=== PATIENT | female | born 1965 | race African-American/Black ===

== ENCOUNTER 2018-01-31 10:55 | Emergency (ER) | payer BC ==
[~2018-01-31] VITALS: Ht 157.5 cm; Wt 63.5 kg
--- NOTE | 2018-01-31 11:04 | NUR ---
Pt states she was prescribed a medication for her A-fib on 01/21/18 but she can not remember the name or dose.
--- NOTE | 2018-01-31 11:39 | NUR ---
Patient discharged to home in stable conditon. Written and verbal after care instructions given. Patient verbalizes understanding of instructions.pt walks in steady gait. pt says feels better and wants to go home.
[2018-01-31 11:42] VITALS: BP 119/61
== END 2018-01-31 11:55 | disposition home or self-care (01) ==
LOC: ER 10:59
DX: I49.1 Atrial premature depolarization (principal); I48.91 Unspecified atrial fibrillation; Z88.2 Allergy status to sulfonamides; Z90.710 Acquired absence of both cervix and uterus
CPT/HCPCS: 93005; A4663

== ENCOUNTER 2023-09-20 13:21 | Emergency (ER) | payer BC ==
[~2023-09-20] VITALS: Ht 157.5 cm; Wt 68.0 kg
[2023-09-20] MEDS ORDERED: NEOMY/BACITRA/POLYMYXIN B OINT UD PACKET TP ONE (14:15)
[2023-09-20] MEDS ORDERED: TDAP DIPH,PERTUSS,TET VAC/PF 0.5 ML DISP.SYRIN IM ONE (14:15)
[2023-09-20] MEDS: TDAP DIPH,PERTUSS,TET VAC/PF 0.5 ML DISP.SYRIN IM ONE (14:54)
[2023-09-20 14:55] VITALS: BP 129/84; TEMP 98.3; O2SAT 98
[2023-09-20] MEDS: NEOMY/BACITRA/POLYMYXIN B OINT UD PACKET TP ONE (14:55)
== END 2023-09-20 15:26 | disposition home or self-care (01) ==
LOC: ER 13:22
DX: S51.832A Puncture wound without foreign body of left forearm, initial encounter (principal); I48.91 Unspecified atrial fibrillation; Z88.2 Allergy status to sulfonamides; W54.0XXA Bitten by dog, initial encounter; Y93.89 Activity, other specified; Y92.89 Other specified places as the place of occurrence of the external cause; Y99.8 Other external cause status
CPT/HCPCS: 90715; A4606; A4663